=== PATIENT | female | born 1965 | race Caucasian/White ===

== ENCOUNTER 2017-06-24 08:08 | Outpatient (CLI) | payer BC ==
--- NOTE | 2017-06-24 10:11 | MRI ---
CERVICAL SPINE MRI NONCONTRAST: CLINICAL HISTORY: Neck pain. FINDINGS: There is trace spondylolisthesis at C4-5 and trace retrolisthesis at C5-6. This results in mild foca l kyphosis centered at the mid cervical spine. There is no acute marrow edema. No acute disk space edema. Mild degenerative disk space narrowing is present at C5-6. The cervical spinal cord demonstrated. There is degenerative hypertrophy at the atlantoaxial articulation with mild effacement of the ventra l thecal sac. C2-3: There is a left asymmetric disk-osteophyte without high-grade central canal or foraminal steno sis. C3-4: There is a left subarticular through foraminal zone disk protrusion superimposed upon disk-ost eophyte. This does result in moderate left foraminal stenosis as well as impingement of the left krish e C4 nerve root. There is no significant cord deformity. The right neural foramen is maintained. C4-5: Degenerative hypertrophy asymmetrically involves the right facet with mild right foraminal gregg nosis. There is no significant compromise of left neural foramen. C5-6: No high-grade central canal or foraminal stenosis. There is bilateral uncinate process hypert rophy and disk-osteophyte formation. C6-7: No high-grade central canal or neural foraminal stenosis. C7-T1: No significant central canal or neural foraminal stenosis. IMPRESSION: Degenerative changes of the cervical spine as delineated above. The findings are most pronounced inv olving C3-4 level with a left subarticular foraminal disk protrusion which does impinge upon the left C4 nerve root and produce moderate left foraminal stenosis. POS: SURAJ
== END 2017-06-24 08:09 | disposition home or self-care (01) ==
LOC: SCSMRI 08:08
PROVIDERS: ATTEND Orthopaedic Surgery
DX: M47.22 Other spondylosis with radiculopathy, cervical region (principal); M50.11 Cervical disc disorder with radiculopathy, high cervical region; M48.02 Spinal stenosis, cervical region
CPT/HCPCS: 72141

== ENCOUNTER 2018-01-06 08:28 | Outpatient (CLI) | payer BC ==
[2018-01-06] MEDS ORDERED: Gadobenate Dimeglumine 529 MG/1 ML (20ML VIAL) ONE (09:00)
--- NOTE | 2018-01-06 13:59 | MRI ---
MRI LEFT WRIST WITH AND WITHOUT CONTRAST: Date: 01/06/18 HISTORY: M67.432 ganglion cyst of left wrist. COMPARISON: Wrist radiographs of 03/27/16. FINDINGS: Bones: There is subtle widening of the scapholunate interval. No acute fracture. No malalignment. No stress edema. No erosions or periostitis. Soft Tissues: There is a nonenhancing ganglion pseudocyst extending from the volar aspect of the capsule at the vol ar scapholunate interval extending volarly and radially interposed between the flexor carpi radialis tendon and the radial artery to abut the skin surface at the region of interest marker. Overall, this multiseptated ganglion pseudocyst measures 1.7 x 0.9 x 1.5 cm (trans x AP x CC). Tendons: No significant tenosynovitis. The extensor carpi ulnaris is normally located in the ulnar groove. IMPRESSION: Benign ganglion pseudocyst at the region of interest marker emanating from the volar aspect of the ca psule at the level of the scapholunate interval extending radially and volarly between the radial art mati and flexor carpi radialis tendon with size as above. POS: SURAJ
== END 2018-01-06 08:29 | disposition home or self-care (01) ==
LOC: SCSMRI 08:28
PROVIDERS: ATTEND Orthopaedic Surgery Hand Surgery
DX: M67.432 Ganglion, left wrist (principal)
CPT/HCPCS: A9579

== ENCOUNTER 2018-02-11 05:35 | Day surgery (SDC) | payer BC ==
[2018-02-10 10:42] VITALS: BMI 23.4
[2018-02-11] MEDS ORDERED: Fentanyl 100 MCG/2 ML VIAL ONE ×2 (06:20→09:08)
[2018-02-11] MEDS ORDERED: Sodium Chloride 0.9% 0 ML ONE (06:29)
[2018-02-11] MEDS ORDERED: Bupivacaine PF 0.5% 30 ML VIAL ONE (06:29)
[2018-02-11] MEDS ORDERED: Betamet Acet/Betamet Na Ph 30 MG/5 ML VIAL ONE (06:29)
[2018-02-11] MEDS ORDERED: Bacitracin Zinc Ointment 30 gm TUBE ONE (06:29)
[2018-02-11] MEDS ORDERED: CEFAZOLIN 2 GM/50 ML BAG ONE (07:07)
[2018-02-11] MEDS ORDERED: Ketorolac Tromethamine 30 MG/ML VIAL ONE ×2 (08:57→14:35)
[2018-02-11] MEDS ORDERED: Ondansetron PF 4 MG/2 ML Vial ONE (14:35)
[2018-02-11] MEDS ORDERED: ePHEDrine/0.9% NaCl/PF SYRINGE 50 mg/10 ml ONE (14:35)
[2018-02-11] MEDS ORDERED: PHENYLEPHRINE-NS 100 MCG/ML 10 ML SYRINGE ONE (14:35)
[2018-02-11] MEDS ORDERED: Dexamethasone 20 MG/5 ML VIAL ONE (14:35)
[2018-02-11] MEDS ORDERED: PROPOFOL 200 MG/20 ML VIAL ONE (14:35)
[2018-02-11] MEDS ORDERED: Glycopyrrolate 0.2 MG/ML 5 ML SYRINGE ONE (14:35)
[2018-02-11] MEDS ORDERED: Lidocaine 1% PF 5 ML VIAL ONE (14:35)
--- NOTE | 2018-02-12 13:26 | OP ---
DATE OF PROCEDURE: 02/16/2018 PREOPERATIVE DIAGNOSIS: Right volar wrist came through right hypertrophic scar wrist. POSTOPERATIVE DIAGNOSIS: Right volar wrist came through right hypertrophic scar wrist. PROCEDURE PERFORMED: 1. Right wrist scar revision. 2. Right wrist volar ganglion excision with extensive cystectomy. SPECIMEN: 2.0 cm ganglion cyst cavity sent to pathology. ESTIMATED BLOOD LOSS: 10 mL TOURNIQUET TIME: 17 minutes. INJECTABLE: 20 mL so 0.5% Marcaine. FINDINGS: Ganglion cyst cavity found just ulnar to the radial artery with a stalk that went into the schaphoradial joint. SURGEON: Mark Hernández M.D. ANESTHESIA: Stateless anesthesia. INDICATION: Failed conservative treatments include pain. DESCRIPTION OF PROCEDURE: After successful general LMA technique, the limb was prepped and draped. Timeout was done appropriately. Right beginning in the cavity, we outlined incision zigzag with the zigzag away from the 1st carpal radialis to avoid the cutaneous nerve branches. We then injected wit h 10 mL of 0.5% Marcaine given before incision and 10 mL after incision was closed. The first thing we did as it was a recurrent cyst, after exsanguinating the limb and inflated the tourniquet to 250 m mHg pressure, we incised the hypertrophic scar which was about 2-3 mm wide. We then carried the inci misty down to full skin and subcutaneous tissue to be completed and isolated. The dermal layer was ab ove the cyst. The cyst was approximately 2 cm diameter and it was located almost entirely on the uln ar aspect of the radial artery. We first shelled it away from radial artery. Then, we fro m the underlying soft tissue, which was markedly thickened hypertrophic white scar as expected for re current tumor. We then followed this down until we could see the stalk emanating from what appeared to be the radios chaphoid joint. We made a 4 mm opening in radioschaphoid joint for 2-2.5 mm stalk, removed it and th en over moderate amount of synovitis in the joint below, so extended the joint 1 cm incision an d was able to remove all the synovitis. We then finished a synovectomy, and sent specimens again into the lab, although inflated because we _ ____stalk. Hemostasis was obtained which included placing one clip in the branch of the radial artery. We place d 3 mL of Celestone into the wound and into the opening the joint created by removal of stone and the n obtained hemostasis again. Closed it with two layers, and running 4-0 Monocryl and a 4-0 nylon int errupted mattress pattern for the depth of the epidermal closure. Trial amount of the injection was given and the patient had the bulky dressing with Adaptic, bacitracin, 4 x 4s and Kerlix underneath a palmar wrist splint. She left the operating room without complications.
== END 2018-02-11 10:57 | disposition home or self-care (01) ==
LOC: SDC 05:35
PROVIDERS: ATTEND Orthopaedic Surgery Hand Surgery
PROC: 0RBP0ZZ Excision of Left Wrist Joint, Open Approach (ICD-10-PCS; principal; 2018-02-11)
PROC: 0LB50ZZ Excision of Right Lower Arm and Wrist Tendon, Open Approach (ICD-10-PCS; principal; 2018-02-11)
DX: M67.432 Ganglion, left wrist (principal); M65.9 Synovitis and tenosynovitis, unspecified; Z88.8 Allergy status to other drugs, medicaments and biological substances
CPT/HCPCS: 88304; 96374; J0702; J1100; J1885; J2001; J2405; J2704; J3010; S0020

== ENCOUNTER 2018-05-30 05:44 | Day surgery (SDC) | payer BC ==
[2018-05-29 12:16] VITALS: BMI 23.8
[2018-05-30] MEDS ORDERED: Midazolam HCl 2 mg/2 ml Vial ONE (06:31)
[2018-05-30] MEDS ORDERED: Fentanyl 100 MCG/2 ML VIAL ONE (06:31)
[2018-05-30] MEDS ORDERED: Bupivacaine PF 0.5% 30 ML VIAL ONE (06:35)
[2018-05-30] MEDS ORDERED: Bacitracin Zinc Ointment 30 gm TUBE ONE (06:36)
[2018-05-30] MEDS ORDERED: Ketorolac Tromethamine 30 MG/ML VIAL ONE ×2 (08:05)
--- NOTE | 2018-05-30 08:41 | RAD ---
THREE VIEWS LEFT WRIST: HISTORY: Foreign body removal. FINDINGS: AP, lateral, and oblique views left wrist are obtained. Three views left wrist demonstrate visualization of the radiopaque foreign body with fluoroscopy. Th e 2nd and 3rd images demonstrate absence of the radiopaque foreign body after removal. IMPRESSION: Left wrist intraoperative radiographs with removal of foreign body. POS: SURAJ
--- NOTE | 2018-05-30 09:13 | OP ---
DATE OF PROCEDURE: 05/30/2018 PREOPERATIVE DIAGNOSIS: Painful foreign body, left wrist (retained 8 mm deep, but sometimes superficial vessel clip). FINDINGS: Vessel clip with small granuloma bed around it, again 8 mm deep underlying the primary incision from previous procedure. PROCEDURES PERFORMED: 1. Removal of deep left wrist foreign body (vessel clip). 2. C-arm supervision. SPECIMENS: Metallic blood vessel clip. ESTIMATED BLOOD LOSS: Less than or equal to 5 mL. TOURNIQUET TIME: 5 minutes. INDICATIONS: The patient had a painful area over her incision, which she thought might be a suture, but upon inspection in the office, it appeared to be a vessel clip, but after given her a large amount of Marcaine, could not localize it in final radiographs. It had proceeded to be located approximately 8 mm deep and thus we felt that we could not remove it effectively in the office, so we came to the operating room today to achieve anesthesia to have C-arm support. ANESTHESIA: General LMA technique augmented by 8 mL of 0.5% Marcaine jocelynn-incisional block technique, no epinephrine. DESCRIPTION OF PROCEDURE: After successful anesthesia, the patient had the limb prepped and draped. Time-out was done appropriately. The tourniquet was inflated after exsanguination of the limb to 250 mmHg pressure. C-arm was brought to the field to identify the mass in the frontal sagittal plane. Indeed, it was almost 8 to 8.5 mm deep all adjacent to the joint. We then made a 1 cm incision along the primary incision from previous surgery, carried through skin and subcutaneous tissue with dissection, we saw the anterior edge of the mass. We dissected with blunt to separate the mass from small reactive granuloma area and it resected all this. The foreign body metallic mass was removed. C-arm confirmed this in frontal sagittal plane. We deflated the tourniquet, irrigated the area with 250 mL of normal saline with bulb syringe pressure and obtained hemostasis. We closed the wound with interrupted 4-0 nylon in a simple pattern. We gave the 8 mL of 0.5% Marcaine in the jocelynn-incisional technique and placed a bulky dressing. The patient left the operating room without evidence of anesthetic operative complication. Job ID: [id number]
[2018-05-30] MEDS ORDERED: Lidocaine 1% PF 5 ML VIAL ONE (14:33)
[2018-05-30] MEDS ORDERED: PROPOFOL 200 MG/20 ML VIAL ONE (14:33)
== END 2018-05-30 09:00 | disposition home or self-care (01) ==
LOC: SDC 05:44
PROVIDERS: ATTEND Orthopaedic Surgery Hand Surgery
PROC: 0RCP0ZZ Extirpation of Matter from Left Wrist Joint, Open Approach (ICD-10-PCS; principal; 2018-05-30)
DX: M60.28 Foreign body granuloma of soft tissue, not elsewhere classified, other site (principal); F41.9 Anxiety disorder, unspecified; H81.10 Benign paroxysmal vertigo, unspecified ear; Z18.10 Retained metal fragments, unspecified; Z79.2 Long term (current) use of antibiotics; Z79.52 Long term (current) use of systemic steroids; Z79.899 Other long term (current) drug therapy; Z88.8 Allergy status to other drugs, medicaments and biological substances
CPT/HCPCS: 76000; J1885; J2001; J2250; J2704; J3010; S0020

== ENCOUNTER 2019-03-10 11:40 | Outpatient (CLI) | payer BC ==
--- NOTE | 2019-03-10 12:03 | RAD ---
Lumbar spine 2 views: 03/10/2019 COMPARISON: 03/06/2016 HISTORY: Low back pain FINDINGS: There is significant S-shaped scoliosis of the lower thoracic spine/thoracolumbar junction with apex to the right in the lower thoracic spine and apex to the left at the lumbosacral junction. Lumbar pedicles appear intact on frontal imaging. The lateral exam demonstrates no signific ant anterolisthesis. Minimal retrolisthesis at L2-3 and at L3-4 measuring in the 3-4 mm range. There is disc space narrowing with degenerative endplate change and anterior osteophyte formation at T12-L1 and L1-2. No acute fracture is appreciated. IMPRESSION: Degenerative change and significant scoliosis as detailed above.
== END 2019-03-10 11:41 | disposition home or self-care (01) ==
LOC: SCSRAD 11:40
PROVIDERS: ATTEND Pediatrics Pediatric Endocrinology
DX: M54.5 Low back pain (principal); M47.815 Spondylosis without myelopathy or radiculopathy, thoracolumbar region; M47.816 Spondylosis without myelopathy or radiculopathy, lumbar region; M41.9 Scoliosis, unspecified
CPT/HCPCS: 72100